=== PATIENT | male | born 1955 | race Caucasian/White ===

== ENCOUNTER 2021-01-07 13:53 | Inpatient (IN) ==
[2021-01-07 15:50] LABS: Basophils % 0.6 %; Eosinophils % 0.6 %; Hematocrit 41.3 % (37.5-50.1); Hemoglobin 14.4 g/dL (12.9-16.9); Immature Granulocytes % 0.5 % (0-4); Lymphocytes # 1.3 K/mcL (0.6-4.6); Mean Corpuscular HGB Conc 34.9 g/dL (31.6-35.5); Mean Corpuscular Volume 106.2 fL (83.0-100.0); Monocytes % 15.7 %; Neutrophils # 3.9 K/mcL (1.6-8.9); Platelet Count 301 K/mcL (140-400); Red Blood Count 3.89 M/mcL (4.19-5.50); Red Cell Distribution Width 11.9 % (11.5-14.5); Segmented Neutrophils % 61.6 %; White Blood Count 6.3 K/mcL (4.3-11.1)
[2021-01-07 16:00] LABS: Prothrombin Time 11.7 Seconds (9.4-12.1)
[2021-01-07 16:02] LABS: Activated Partial Thrombo Time 29.9 Seconds (26.0-36.0)
[2021-01-07 16:20] LABS: Alanine Aminotransferase 29 Units/L (7-52); Albumin 4.2 g/dL (3.5-5.7); Albumin/Globulin Ratio 1.5 (1.1-2.2); Alkaline Phosphatase 55 Units/L (34-104); Aspartate Amino Transferase 27 Units/L (13-39); BUN/Creatinine Ratio 22 (6-26); Bilirubin,Direct 0.1 mg/dL (0.0-0.2); Bilirubin,Indirect 0.5 mg/dL (0.0-1.0); Bilirubin,Total 0.6 mg/dL (0.3-1.0); Blood Urea Nitrogen 13 mg/dL (8-23); Calcium 9.2 mg/dL (8.6-10.3); Carbon Dioxide 26 mEq/L (23-29); Chloride 99 mEq/L (98-107); Globulin 2.8 g/dL (2.4-3.5); Glucose 98 mg/dL (70-105); Osmolality,Calculated 274 (280-300); Potassium 4.2 mEq/L (3.5-5.1); Sodium 132 mEq/L (136-145); Troponin I < 0.03 ng/mL (< 0.04); eGFR For African Americans > 60 (> 60); eGFR For Non-African Americans > 60 (> 60)
[2021-01-07 16:24] LABS: Bilirubin,Urine Negative (Negative); Blood,Urine Negative (Negative); Clarity,Urine Clear (Clear); Color,Urine Light-Yellow (Yellow); Glucose,Urine (UA) Normal (Normal); Ketones,Urine Trace mg/dL (Negative); Leukocyte Esterase,Urine Negative (Negative); Nitrite,Urine Negative (Negative); PH,Urine 6.5 pH Units (5.0-8.0); Protein,Urine Negative (Neg-Trace); Urobilinogen,Urine Normal (Normal)
[2021-01-07 16:33] LABS: Ethanol < 10 mg/dL (Less than 10)
[2021-01-07 16:39] LABS: Amphetamine Screen,Urine Negative ng/mL (Cutoff=1000); Barbiturate Screen,Urine Negative ng/mL (Cutoff=200); Benzodiazepines Screen,Urine Negative ng/mL (Cutoff=200); Cannabinoid Screen,Urine Positive ng/mL (Cutoff = 50); Cocaine Screen,Urine Negative ng/mL (Cutoff= 300); Opiate Screen,Urine Negative ng/mL (Cutoff=300); Phencyclidine Screen,Urine Negative ng/mL (Cutoff=25)
[2021-01-07] MEDS ORDERED: *HR* LORazepam 2 MG/ML VIAL IVP ONE (20:17)
[2021-01-07] MEDS ORDERED: Ondansetron ODT 4 MG TAB.RAPDIS SL PRN (21:26)
[2021-01-07] MEDS ORDERED: Naloxone 0.4 MG/ML INJ IVP PRN (21:26)
[2021-01-07] MEDS ORDERED: *HR* LORazepam 2 MG/ML VIAL IVP PRN (21:26)
[2021-01-07] MEDS ORDERED: *HR* LORazepam 2 MG/ML VIAL ONE (21:42)
[2021-01-07] MEDS: *HR* LORazepam 2 MG/ML VIAL IVP PRN (21:49)
[2021-01-07] MEDS: Thiamine (B-1) 100 MG, Folic Acid 1 MG, MVI, adult with vitamin K 10 ML in 0.9 % Sodi... IVPB SCH (22:09)
[2021-01-07 23:26] LABS: Thyroid Stimulating Hormone 1.621 mcIU/mL (0.340-5.600)
[2021-01-08 02:27] LABS: Basophils % 0.6 %; Eosinophils # 0.1 K/mcL (0.0-0.6); Eosinophils % 1.1 %; Hematocrit 38.6 % (37.5-50.1); Hemoglobin 13.5 g/dL (12.9-16.9); Immature Granulocytes % 0.5 % (0-4); Lymphocytes # 1.5 K/mcL (0.6-4.6); Lymphocytes % 23.3 %; Mean Corpuscular Hemoglobin 37.6 pg (28.0-33.3); Mean Corpuscular Volume 107.5 fL (83.0-100.0); Mean Platelet Volume 9.2 fL (9.4-12.4); Monocytes # 1.1 K/mcL (0.0-1.3); Neutrophils # 3.8 K/mcL (1.6-8.9); Platelet Count 277 K/mcL (140-400); Red Blood Count 3.59 M/mcL (4.19-5.50); Red Cell Distribution Width 11.7 % (11.5-14.5); Segmented Neutrophils % 57.5 %; White Blood Count 6.6 K/mcL (4.3-11.1)
[2021-01-08 02:43] LABS: Alanine Aminotransferase 26 Units/L (7-52); Albumin 3.7 g/dL (3.5-5.7); Albumin/Globulin Ratio 1.5 (1.1-2.2); Alkaline Phosphatase 47 Units/L (34-104); Aspartate Amino Transferase 22 Units/L (13-39); BUN/Creatinine Ratio 27 (6-26); Bilirubin,Total 0.6 mg/dL (0.3-1.0); Blood Urea Nitrogen 13 mg/dL (8-23); Calcium 8.6 mg/dL (8.6-10.3); Carbon Dioxide 23 mEq/L (23-29); Chloride 102 mEq/L (98-107); Chol/HDL Ratio 2.5 (0-4.9); Cholesterol 147 mg/dL (< 200); Globulin 2.5 g/dL (2.4-3.5); Glucose 80 mg/dL (70-105); HDL Cholesterol 58 mg/dL (40-59); LDL Cholesterol,Calculated 76 mg/dL (< 100); Osmolality,Calculated 279 (280-300); Phosphorous 3.6 mg/dL (2.7-4.5); Potassium 3.9 mEq/L (3.5-5.1); Sodium 135 mEq/L (136-145); Total Protein 6.2 g/dL (6.4-8.9); Triglycerides 63 mg/dL (< 150); eGFR For African Americans > 60 (> 60); eGFR For Non-African Americans > 60 (> 60)
[2021-01-08] MEDS ORDERED: Ringers Solution, Lactated 1,000 ML IVC ONE (03:31)
[2021-01-08] MEDS ORDERED: *HR* Heparin 5,000 UNIT/ML VIAL SQ SCH (06:00)
[2021-01-08] MEDS: *HR* LORazepam 2 MG/ML VIAL IVP PRN ×4 (10:50→23:36)
[2021-01-08] MEDS: lisinopriL 10 MG TABLET PO SCH (15:44)
[2021-01-08] MEDS: Thiamine (B-1) 100 MG, Folic Acid 1 MG, MVI, adult with vitamin K 10 ML in 0.9 % Sodi... IVPB SCH (17:08)
[2021-01-09] MEDS: *HR* LORazepam 2 MG/ML VIAL IVP PRN ×3 (01:42→19:55)
[2021-01-09 09:01] LABS: Basophils # 0.1 K/mcL (0.0-0.2); Basophils % 0.7 %; Eosinophils # 0.1 K/mcL (0.0-0.6); Eosinophils % 1.2 %; Hematocrit 40.1 % (37.5-50.1); Hemoglobin 13.9 g/dL (12.9-16.9); Immature Granulocytes % 0.6 % (0-4); Lymphocytes # 1.7 K/mcL (0.6-4.6); Lymphocytes % 25.2 %; Mean Corpuscular HGB Conc 34.7 g/dL (31.6-35.5); Mean Corpuscular Hemoglobin 36.6 pg (28.0-33.3); Mean Corpuscular Volume 105.5 fL (83.0-100.0); Monocytes # 1.2 K/mcL (0.0-1.3); Monocytes % 17.1 %; Neutrophils # 3.7 K/mcL (1.6-8.9); Platelet Count 281 K/mcL (140-400); Red Cell Distribution Width 11.7 % (11.5-14.5); Segmented Neutrophils % 55.2 %; White Blood Count 6.7 K/mcL (4.3-11.1)
[2021-01-09 09:20] LABS: BUN/Creatinine Ratio 13 (6-26); Blood Urea Nitrogen 8 mg/dL (8-23); Calcium 8.6 mg/dL (8.6-10.3); Carbon Dioxide 26 mEq/L (23-29); Chloride 100 mEq/L (98-107); Glucose 83 mg/dL (70-105); Magnesium 1.8 mg/dL (1.6-2.6); Osmolality,Calculated 277 (280-300); Phosphorous 3.5 mg/dL (2.7-4.5); Potassium 4.2 mEq/L (3.5-5.1); Sodium 135 mEq/L (136-145); eGFR For African Americans > 60 (> 60); eGFR For Non-African Americans > 60 (> 60)
[2021-01-09] MEDS: Nicotine 14 MG PATCH.TD24 TD SCH ×2 (10:02→10:03)
[2021-01-09] MEDS: lisinopriL 10 MG TABLET PO SCH (10:06)
[2021-01-09] MEDS: Thiamine (B-1) 100 MG, Folic Acid 1 MG, MVI, adult with vitamin K 10 ML in 0.9 % Sodi... IVPB SCH (18:52)
[2021-01-09] MEDS ORDERED: Haloperidol Lactate 5 MG/ML VIAL ONE (21:23)
[2021-01-09] MEDS: Haloperidol Lactate 5 MG/ML VIAL IVP PRN (21:28)
[2021-01-10 02:44] LABS: Basophils % 0.6 %; Eosinophils # 0.1 K/mcL (0.0-0.6); Eosinophils % 0.9 %; Hematocrit 39.6 % (37.5-50.1); Hemoglobin 13.8 g/dL (12.9-16.9); Immature Granulocytes % 0.4 % (0-4); Lymphocytes # 1.9 K/mcL (0.6-4.6); Lymphocytes % 28.6 %; Mean Corpuscular HGB Conc 34.8 g/dL (31.6-35.5); Mean Corpuscular Hemoglobin 36.7 pg (28.0-33.3); Mean Corpuscular Volume 105.3 fL (83.0-100.0); Mean Platelet Volume 9.3 fL (9.4-12.4); Monocytes # 0.9 K/mcL (0.0-1.3); Monocytes % 13.8 %; Neutrophils # 3.8 K/mcL (1.6-8.9); Platelet Count 279 K/mcL (140-400); Red Blood Count 3.76 M/mcL (4.19-5.50); Red Cell Distribution Width 11.6 % (11.5-14.5); Segmented Neutrophils % 55.7 %; White Blood Count 6.7 K/mcL (4.3-11.1)
[2021-01-10 03:06] LABS: BUN/Creatinine Ratio 20 (6-26); Blood Urea Nitrogen 10 mg/dL (8-23); Calcium 8.6 mg/dL (8.6-10.3); Carbon Dioxide 23 mEq/L (23-29); Chloride 102 mEq/L (98-107); Glucose 90 mg/dL (70-105); Osmolality,Calculated 273 (280-300); Potassium 3.8 mEq/L (3.5-5.1); Sodium 132 mEq/L (136-145); eGFR For African Americans > 60 (> 60); eGFR For Non-African Americans > 60 (> 60)
[2021-01-10] MEDS: Nicotine 14 MG PATCH.TD24 TD SCH (10:00)
[2021-01-10] MEDS: lisinopriL 10 MG TABLET PO SCH (10:01)
[2021-01-10] MEDS: Haloperidol Lactate 5 MG/ML VIAL IVP PRN (10:01)
[2021-01-10] MEDS: Thiamine (B-1) 100 MG TABLET PO SCH (12:14)
[2021-01-10] MEDS: Multivit/Ca/Min/Fe/FA 1 TAB TABLET PO SCH (12:14)
[2021-01-10] MEDS: Folic Acid 1 MG TABLET PO SCH (12:14)
[2021-01-10] MEDS: *HR* LORazepam 2 MG/ML VIAL IVP PRN ×2 (13:35→21:48)
[2021-01-10] MEDS ORDERED: Nicotine 2 MG GUM BC PRN (21:56)
[2021-01-11 04:47] LABS: Basophils % 0.4 %; Hematocrit 40.8 % (37.5-50.1); Immature Granulocytes % 0.4 % (0-4); Lymphocytes # 0.6 K/mcL (0.6-4.6); Lymphocytes % 7.1 %; Mean Corpuscular HGB Conc 34.3 g/dL (31.6-35.5); Mean Corpuscular Hemoglobin 35.9 pg (28.0-33.3); Mean Corpuscular Volume 104.6 fL (83.0-100.0); Mean Platelet Volume 9.1 fL (9.4-12.4); Monocytes # 0.7 K/mcL (0.0-1.3); Monocytes % 7.8 %; Neutrophils # 7.1 K/mcL (1.6-8.9); Platelet Count 250 K/mcL (140-400); Red Cell Distribution Width 11.6 % (11.5-14.5); Segmented Neutrophils % 84.3 %; White Blood Count 8.4 K/mcL (4.3-11.1)
[2021-01-11 05:04] LABS: BUN/Creatinine Ratio 20 (6-26); Blood Urea Nitrogen 11 mg/dL (8-23); Carbon Dioxide 25 mEq/L (23-29); Chloride 101 mEq/L (98-107); Glucose 128 mg/dL (70-105); Osmolality,Calculated 277 (280-300); Sodium 133 mEq/L (136-145); eGFR For African Americans > 60 (> 60); eGFR For Non-African Americans > 60 (> 60)
[2021-01-11] MEDS: Nicotine 14 MG PATCH.TD24 TD SCH (08:02)
[2021-01-11] MEDS: lisinopriL 10 MG TABLET PO SCH (08:03)
[2021-01-11] MEDS: Folic Acid 1 MG TABLET PO SCH (08:03)
[2021-01-11] MEDS: Thiamine (B-1) 100 MG TABLET PO SCH (08:03)
[2021-01-11] MEDS: Multivit/Ca/Min/Fe/FA 1 TAB TABLET PO SCH (08:03)
[2021-01-11] MEDS: Haloperidol Lactate 5 MG/ML VIAL IVP PRN (15:09)
[2021-01-11] MEDS ORDERED: *HR* LORazepam 2 MG/ML VIAL IVP STA (15:18)
[2021-01-11] MEDS ORDERED: Haloperidol Lactate 5 MG/ML VIAL IVP ONE (15:38)
[2021-01-12 07:12] LABS: Basophils % 0.6 %; Eosinophils # 0.1 K/mcL (0.0-0.6); Eosinophils % 0.7 %; Hematocrit 40.4 % (37.5-50.1); Hemoglobin 14.2 g/dL (12.9-16.9); Immature Granulocytes % 0.4 % (0-4); Lymphocytes # 1.3 K/mcL (0.6-4.6); Mean Corpuscular HGB Conc 35.1 g/dL (31.6-35.5); Mean Corpuscular Hemoglobin 37.4 pg (28.0-33.3); Mean Corpuscular Volume 106.3 fL (83.0-100.0); Mean Platelet Volume 9.4 fL (9.4-12.4); Monocytes # 1.4 K/mcL (0.0-1.3); Monocytes % 19.5 %; Neutrophils # 4.4 K/mcL (1.6-8.9); Platelet Count 241 K/mcL (140-400); Segmented Neutrophils % 60.8 %; White Blood Count 7.2 K/mcL (4.3-11.1)
[2021-01-12 07:33] LABS: BUN/Creatinine Ratio 26 (6-26); Blood Urea Nitrogen 15 mg/dL (8-23); Calcium 8.9 mg/dL (8.6-10.3); Carbon Dioxide 24 mEq/L (23-29); Chloride 108 mEq/L (98-107); Glucose 108 mg/dL (70-105); Osmolality,Calculated 273 (280-300); Potassium 4.1 mEq/L (3.5-5.1); Sodium 131 mEq/L (136-145); eGFR For African Americans > 60 (> 60); eGFR For Non-African Americans > 60 (> 60)
[2021-01-12] MEDS: Thiamine (B-1) 100 MG TABLET PO SCH (07:42)
[2021-01-12] MEDS: Multivit/Ca/Min/Fe/FA 1 TAB TABLET PO SCH (07:42)
[2021-01-12] MEDS: Haloperidol Lactate 5 MG/ML VIAL IVP PRN ×2 (07:43→15:08)
[2021-01-12] MEDS: Nicotine 14 MG PATCH.TD24 TD SCH (07:43)
[2021-01-12] MEDS: lisinopriL 10 MG TABLET PO SCH (07:43)
[2021-01-12] MEDS: Folic Acid 1 MG TABLET PO SCH (07:48)
[2021-01-12] MEDS: *HR* LORazepam 2 MG/ML VIAL IVP PRN (20:20)
[2021-01-12] MEDS ORDERED: Haloperidol Lactate 5 MG/ML VIAL IVP ONE (22:04)
[2021-01-13 07:24] LABS: Hematocrit 40.4 % (37.5-50.1); Hemoglobin 13.7 g/dL (12.9-16.9); Lymphocytes # 1.4 K/mcL (0.6-4.6); Mean Corpuscular HGB Conc 33.9 g/dL (31.6-35.5); Mean Corpuscular Hemoglobin 36.2 pg (28.0-33.3); Mean Corpuscular Volume 106.9 fL (83.0-100.0); Mean Platelet Volume 9.5 fL (9.4-12.4); Platelet Count 238 K/mcL (140-400); Red Blood Count 3.78 M/mcL (4.19-5.50); Red Cell Distribution Width 11.9 % (11.5-14.5); White Blood Count 6.3 K/mcL (4.3-11.1)
[2021-01-13 07:43] LABS: BUN/Creatinine Ratio 26 (6-26); Blood Urea Nitrogen 15 mg/dL (8-23); Carbon Dioxide 26 mEq/L (23-29); Chloride 105 mEq/L (98-107); Glucose 93 mg/dL (70-105); Osmolality,Calculated 281 (280-300); Potassium 4.4 mEq/L (3.5-5.1); Sodium 135 mEq/L (136-145); eGFR For African Americans > 60 (> 60); eGFR For Non-African Americans > 60 (> 60)
[2021-01-13 08:19] LABS: Monocytes # 1.1 K/mcL (0.0-1.3); Neutrophils # 3.8 K/mcL (1.6-8.9); Platelet Estimate Normal (Normal); Reactive Lymphocytes Present (Not Present)
[2021-01-13] MEDS: Nicotine 14 MG PATCH.TD24 TD SCH (08:28)
[2021-01-13] MEDS: lisinopriL 10 MG TABLET PO SCH ×2 (08:28→08:54)
[2021-01-13] MEDS: Thiamine (B-1) 100 MG TABLET PO SCH ×2 (08:28→08:54)
[2021-01-13] MEDS: Folic Acid 1 MG TABLET PO SCH ×2 (08:28→08:54)
[2021-01-13] MEDS: Multivit/Ca/Min/Fe/FA 1 TAB TABLET PO SCH ×2 (08:28→08:54)
[2021-01-13] MEDS: QUEtiapine Fumarate 25 MG TABLET PO SCH ×2 (10:44→19:49)
[2021-01-13] MEDS: Haloperidol Lactate 5 MG/ML VIAL IVP PRN ×2 (15:24→19:49)
[2021-01-14] MEDS: Haloperidol Lactate 5 MG/ML VIAL IVP PRN ×3 (00:07→20:48)
[2021-01-14] MEDS: Nicotine 14 MG PATCH.TD24 TD SCH (09:58)
[2021-01-14] MEDS: Folic Acid 1 MG TABLET PO SCH (10:00)
[2021-01-14] MEDS: Multivit/Ca/Min/Fe/FA 1 TAB TABLET PO SCH (10:00)
[2021-01-14] MEDS: Thiamine (B-1) 100 MG TABLET PO SCH (10:00)
[2021-01-14] MEDS: lisinopriL 10 MG TABLET PO SCH (10:00)
[2021-01-14] MEDS: QUEtiapine Fumarate 25 MG TABLET PO SCH ×2 (10:00→20:48)
[2021-01-14 11:54] LABS: Hemoglobin 13.7 g/dL (12.9-16.9); Mean Corpuscular HGB Conc 33.4 g/dL (31.6-35.5); Mean Corpuscular Hemoglobin 35.9 pg (28.0-33.3); Mean Corpuscular Volume 107.3 fL (83.0-100.0); Mean Platelet Volume 9.5 fL (9.4-12.4); Platelet Count 284 K/mcL (140-400); Red Blood Count 3.82 M/mcL (4.19-5.50); Red Cell Distribution Width 11.9 % (11.5-14.5); White Blood Count 9.1 K/mcL (4.3-11.1)
[2021-01-14 14:00] LABS: BUN/Creatinine Ratio 18 (6-26); Blood Urea Nitrogen 11 mg/dL (8-23); Calcium 9.3 mg/dL (8.6-10.3); Carbon Dioxide 28 mEq/L (23-29); Chloride 100 mEq/L (98-107); Glucose 97 mg/dL (70-105); Osmolality,Calculated 279 (280-300); Potassium 4.1 mEq/L (3.5-5.1); Sodium 135 mEq/L (136-145); eGFR For African Americans > 60 (> 60); eGFR For Non-African Americans > 60 (> 60)
[2021-01-14] MEDS: *HR* LORazepam 2 MG/ML VIAL IVP PRN (14:51)
[2021-01-15] MEDS: Nicotine 14 MG PATCH.TD24 TD SCH (10:30)
[2021-01-15] MEDS: Haloperidol Lactate 5 MG/ML VIAL IVP PRN ×2 (14:04→20:18)
[2021-01-15] MEDS: Folic Acid 1 MG TABLET PO SCH (14:16)
[2021-01-15] MEDS: QUEtiapine Fumarate 25 MG TABLET PO SCH ×2 (14:16→20:17)
[2021-01-15] MEDS: Multivit/Ca/Min/Fe/FA 1 TAB TABLET PO SCH (14:16)
[2021-01-15] MEDS: lisinopriL 10 MG TABLET PO SCH (14:17)
[2021-01-15] MEDS: Thiamine (B-1) 100 MG TABLET PO SCH (14:17)
[2021-01-16] MEDS: Nicotine 14 MG PATCH.TD24 TD SCH (09:53)
[2021-01-16] MEDS: lisinopriL 10 MG TABLET PO SCH (09:54)
[2021-01-16] MEDS: Multivit/Ca/Min/Fe/FA 1 TAB TABLET PO SCH (09:54)
[2021-01-16] MEDS: QUEtiapine Fumarate 25 MG TABLET PO SCH ×2 (09:54→20:00)
[2021-01-16] MEDS: Folic Acid 1 MG TABLET PO SCH (09:54)
[2021-01-16] MEDS: Thiamine (B-1) 100 MG TABLET PO SCH (09:54)
[2021-01-16] MEDS ORDERED: *HR* LORazepam 2 MG/ML VIAL IVP ONE (13:53)
[2021-01-16] MEDS: *HR* Heparin 5,000 UNIT/ML VIAL SQ SCH ×2 (18:11→20:00)
[2021-01-16] MEDS: Nicotine 21 MG PATCH.TD24 TD SCH (19:59)
[2021-01-17] MEDS: *HR* Heparin 5,000 UNIT/ML VIAL SQ SCH ×2 (05:35→19:01)
[2021-01-17] MEDS: Folic Acid 1 MG TABLET PO SCH (09:43)
[2021-01-17] MEDS: lisinopriL 10 MG TABLET PO SCH (09:43)
[2021-01-17] MEDS: Thiamine (B-1) 100 MG TABLET PO SCH (09:43)
[2021-01-17] MEDS: Multivit/Ca/Min/Fe/FA 1 TAB TABLET PO SCH (09:43)
[2021-01-17] MEDS: QUEtiapine Fumarate 25 MG TABLET PO SCH ×2 (09:44→19:47)
[2021-01-17] MEDS ORDERED: QUEtiapine Fumarate 25 MG TABLET PO ONE (14:57)
[2021-01-17] MEDS: Nicotine 21 MG PATCH.TD24 TD SCH (19:47)
[2021-01-17] MEDS ORDERED: Acetaminophen 325 MG TABLET PO PRN (22:56)
[2021-01-18] MEDS ORDERED: QUEtiapine Fumarate 25 MG TABLET PO ONE (01:58)
[2021-01-18] MEDS: *HR* Heparin 5,000 UNIT/ML VIAL SQ SCH (05:41)
[2021-01-18] MEDS: QUEtiapine Fumarate 25 MG TABLET PO SCH (09:50)
[2021-01-18] MEDS: Thiamine (B-1) 100 MG TABLET PO SCH (09:50)
[2021-01-18] MEDS: Folic Acid 1 MG TABLET PO SCH (09:51)
[2021-01-18] MEDS: Multivit/Ca/Min/Fe/FA 1 TAB TABLET PO SCH (09:51)
[2021-01-18] MEDS: lisinopriL 10 MG TABLET PO SCH (09:51)
[2021-01-18 11:07] VITALS: BP 126/68
[2021-01-18 12:45] LABS: Adenovirus Not Detected (Not Detect); Bordetella Pertussis Not Detected (Not Detect); Chlamydophila pneumoniae Not Detected (Not Detect); Coronavirus 229E Not Detected (Not Detect); Coronavirus HKU1 Not Detected (Not Detect); Coronavirus NL63 Not Detected (Not Detect); Coronavirus OC43 Not Detected (Not Detect); Human Metapneumovirus Not Detected (Not Detect); Human Rhinovirus/Enterovirus Not Detected (Not Detect); Influenza A Subtype 2009 H1 Not Detected (Not Detect); Influenza B Not Detected (Not Detect); Mycoplasma pneumoniae Not Detected (Not Detect); Parainfluenza Virus 1 Not Detected (Not Detect); Parainfluenza Virus 2 Not Detected (Not Detect); Parainfluenza Virus 3 Not Detected (Not Detect); Parainfluenza Virus 4 Not Detected (Not Detect); Respiratory Syncytial Virus Not Detected (Not Detect); SARS-CoV-2 Not Detected (Not Detect)
== END 2021-01-18 14:11 | DRG 896 ==
LOC: CDU 13:53 → EMEROOARM 13:53 → SUATTDRO 20:29 → CDU 21:12 → 2ANU 01-08 00:34 → SUATTDRO 01-09 16:35 → 2ANU 01-10 10:10
PROVIDERS: ADMIT Family Medicine; ATTEND Internal Medicine

== ENCOUNTER 2021-09-24 15:59 | Inpatient (IN) ==
[2021-09-24] MEDS ORDERED: 0.9 % Sodium Chloride 1,000 ML IVC ONE ×2 (16:02→21:05)
[2021-09-24] MEDS ORDERED: *HR* LORazepam 2 MG/ML VIAL IVP ONE (16:58)
[2021-09-24 17:43] LABS: Lymphocytes % 16.1 %; Red Blood Count 1.89 M/mcL (4.19-5.50)
[2021-09-24 17:45] LABS: Alanine Aminotransferase 11 Units/L (7-52); Albumin 3.4 g/dL (3.5-5.7); Albumin/Globulin Ratio 1.2 (1.1-2.2); Alkaline Phosphatase 50 Units/L (34-104); Aspartate Amino Transferase 15 Units/L (13-39); BUN/Creatinine Ratio 38 (6-26); Basophils % 0.2 %; Bilirubin,Total 0.4 mg/dL (0.3-1.0); Blood Urea Nitrogen 34 mg/dL (8-23); Calcium 8.7 mg/dL (8.6-10.3); Carbon Dioxide 13 mEq/L (23-29); Chloride 101 mEq/L (98-107); Creatine Kinase 65 Units/L (30-223); Globulin 2.8 g/dL (2.4-3.5); Glucose 175 mg/dL (70-105); Hematocrit 18.8 % (37.5-50.1); Immature Granulocytes % 1.7 % (0-4); Lymphocytes # 1.5 K/mcL (0.6-4.6); Magnesium 2.3 mg/dL (1.6-2.6); Mean Corpuscular HGB Conc 30.9 g/dL (31.6-35.5); Mean Corpuscular Hemoglobin 30.7 pg (28.0-33.3); Mean Corpuscular Volume 99.5 fL (83.0-100.0); Mean Platelet Volume 9.4 fL (9.4-12.4); Monocytes # 0.5 K/mcL (0.0-1.3); Monocytes % 5.7 %; Neutrophils # 7.1 K/mcL (1.6-8.9); Osmolality,Calculated 298 (280-300); Platelet Count 474 K/mcL (140-400); Red Cell Distribution Width 12.7 % (11.5-14.5); Segmented Neutrophils % 76.3 %; Sodium 138 mEq/L (136-145); Total Protein 6.2 g/dL (6.4-8.9); Troponin I < 0.03 ng/mL (< 0.04); White Blood Count 9.3 K/mcL (4.3-11.1); eGFR For African Americans > 60 (> 60); eGFR For Non-African Americans > 60 (> 60)
[2021-09-24 17:55] LABS: Hemoglobin 5.8 g/dL (12.9-16.9)
[2021-09-24] MEDS ORDERED: Pantoprazole 80 MG in 0.9 % Sodium Chloride 50 ML IVPB ONE (18:03)
[2021-09-24 18:59] LABS: VBG HCO3 11 mEq/L (21-27); VBG PCO2 30 mmHg (41-51); VBG PH 7.17 pH Units (7.32-7.42); VBG PO2 188 mmHg (25-50)
[2021-09-24] MEDS: Pantoprazole 40 MG in 0.9 % Sodium Chloride Mini Bag 100 ML IVC SCH (19:24)
[2021-09-24] MEDS ORDERED: Naloxone 0.4 MG/ML INJ IVP PRN (19:46)
[2021-09-24] MEDS ORDERED: Ondansetron ODT 4 MG TAB.RAPDIS SL PRN (19:46)
[2021-09-24] MEDS ORDERED: 0.9 % Sodium Chloride 250 ML ONE (20:00)
[2021-09-24] MEDS ORDERED: 0.9 % Sodium Chloride 1,000 ML IVC SCH (20:00)
[2021-09-24] MEDS: Octreotide 400 MCG in 0.9 % Sodium Chloride 100 ML IVC SCH (21:16)
[2021-09-24] MEDS ORDERED: CefTRIAXone 1,000 MG VIAL ONE (21:17)
[2021-09-24] MEDS: cefTRIAXone 1,000 MG in Water for inj. (sterile) 10 ML IVP SCH (21:19)
[2021-09-24] MEDS ORDERED: Lactulose 200 GM, Sodium Chloride IRRigation 700 ML RC ONE (21:30)
[2021-09-24 21:31] LABS: INR 1.8; Prothrombin Time 19.5 Seconds (9.4-12.1)
[2021-09-24 21:33] LABS: Activated Partial Thrombo Time 34.9 Seconds (26.0-36.0)
[2021-09-24 21:42] LABS: Phosphorous 6.5 mg/dL (2.7-4.5)
[2021-09-24 21:50] LABS: Bilirubin,Urine Negative (Negative); Blood,Urine Trace (Negative); Clarity,Urine Clear (Clear); Color,Urine Light-Yellow (Yellow); Glucose,Urine (UA) Normal (Normal); Hyaline Casts,Urine Moderate per lpf (None Seen); Ketones,Urine 10 mg/dL (Negative); Leukocyte Esterase,Urine Negative (Negative); Mucus,Urine Few per lpf (None-Few); Nitrite,Urine Negative (Negative); PH,Urine 5.5 pH Units (5.0-8.0); Protein,Urine Trace mg/dL (Neg-Trace); RBC,Urine 0-3 per hpf (0-3); Specific Gravity,Urine 1.022 (1.010-1.025); Squamous Epithelial Cell,Urine Few per hpf (None-Few); Urobilinogen,Urine Normal (Normal)
[2021-09-24] MEDS: Morphine Sulfate 2 MG/ML SYRINGE IVP PRN (22:21)
[2021-09-24] MEDS ORDERED: Dextrose 4 GM Chewable Tablets PO PRN ×2 (23:23)
[2021-09-25] MEDS: Pantoprazole 40 MG in 0.9 % Sodium Chloride Mini Bag 100 ML IVC SCH ×5 (00:03→22:00)
[2021-09-25] MEDS: Insulin LISPRO 300 UNITS/3 ML VIAL SUBQ SCH ×4 (00:05→23:07)
[2021-09-25] MEDS ORDERED: levETIRAcetam 1,000 MG in 0.9 % Sodium Chloride 100 ML IVPB ONE (00:07)
[2021-09-25] MEDS ORDERED: 0.9 % Sodium Chloride 1,000 ML IVC ONE (00:18)
[2021-09-25] MEDS ORDERED: 0.9 % Sodium Chloride 1,000 ML ONE (00:27)
[2021-09-25 01:21] LABS: Hematocrit 15.4 % (37.5-50.1); Mean Corpuscular HGB Conc 31.2 g/dL (31.6-35.5); Mean Corpuscular Hemoglobin 29.8 pg (28.0-33.3); Mean Corpuscular Volume 95.7 fL (83.0-100.0); Mean Platelet Volume 9.4 fL (9.4-12.4); Platelet Count 241 K/mcL (140-400); Red Blood Count 1.61 M/mcL (4.19-5.50); Red Cell Distribution Width 15.9 % (11.5-14.5); White Blood Count 17.4 K/mcL (4.3-11.1)
[2021-09-25 01:24] LABS: VBG HCO3 9 mEq/L (21-27); VBG PCO2 27 mmHg (41-51); VBG PO2 109 mmHg (25-50)
[2021-09-25 01:25] LABS: Hemoglobin 4.8 g/dL (12.9-16.9)
[2021-09-25] MEDS ORDERED: 0.9 % Sodium Chloride 250 ML IVC SCH (01:30)
[2021-09-25] MEDS ORDERED: Isovue-370 500 ML BOTTLE IVP ONE ×2 (01:30→23:52)
[2021-09-25] MEDS ORDERED: 0.9 % Sodium Chloride 250 ML ONE ×2 (01:35→03:39)
[2021-09-25 01:58] LABS: Alanine Aminotransferase 1218 Units/L (7-52); Albumin 2.2 g/dL (3.5-5.7); Albumin/Globulin Ratio 1.5 (1.1-2.2); Alkaline Phosphatase 35 Units/L (34-104); Aspartate Amino Transferase 1091 Units/L (13-39); BUN/Creatinine Ratio 37 (6-26); Bilirubin,Total 0.5 mg/dL (0.3-1.0); Blood Urea Nitrogen 34 mg/dL (8-23); Calcium 6.4 mg/dL (8.6-10.3); Carbon Dioxide 9 mEq/L (23-29); Chloride 114 mEq/L (98-107); Globulin 1.5 g/dL (2.4-3.5); Glucose 113 mg/dL (70-105); Osmolality,Calculated 300 (280-300); Potassium 5.1 mEq/L (3.5-5.1); Sodium 141 mEq/L (136-145); Total Protein 3.7 g/dL (6.4-8.9); eGFR For African Americans > 60 (> 60); eGFR For Non-African Americans > 60 (> 60)
[2021-09-25] MEDS: Morphine Sulfate 2 MG/ML SYRINGE IVP PRN ×2 (04:08→21:00)
[2021-09-25 06:36] LABS: Basophils % 0.1 %; Hematocrit 28.3 % (37.5-50.1); Hemoglobin 9.1 g/dL (12.9-16.9); Immature Granulocytes % 1.1 % (0-4); Lymphocytes # 0.9 K/mcL (0.6-4.6); Lymphocytes % 5.3 %; Mean Corpuscular HGB Conc 32.2 g/dL (31.6-35.5); Mean Corpuscular Hemoglobin 28.9 pg (28.0-33.3); Mean Corpuscular Volume 89.8 fL (83.0-100.0); Mean Platelet Volume 9.5 fL (9.4-12.4); Monocytes # 0.7 K/mcL (0.0-1.3); Monocytes % 4.1 %; Neutrophils # 14.3 K/mcL (1.6-8.9); Nucleated Red Blood Cells 0.2 /100 WBC (0); Platelet Count 178 K/mcL (140-400); Red Blood Count 3.15 M/mcL (4.19-5.50); Red Cell Distribution Width 14.6 % (11.5-14.5); Segmented Neutrophils % 89.4 %
[2021-09-25] MEDS ORDERED: Ringers Solution, Lactated 500 ML IVC SCH (07:45)
[2021-09-25] MEDS: cefTRIAXone 1,000 MG in Water for inj. (sterile) 10 ML IVP SCH (08:29)
[2021-09-25 09:23] LABS: INR 2.3; Prothrombin Time 25.2 Seconds (9.4-12.1)
[2021-09-25 09:26] LABS: Activated Partial Thrombo Time 30.2 Seconds (26.0-36.0)
[2021-09-25] MEDS: Octreotide 400 MCG in 0.9 % Sodium Chloride 100 ML IVC SCH ×2 (09:33→19:56)
[2021-09-25] MEDS ORDERED: WATER IVC ONE ×2 (10:00→11:00)
[2021-09-25] MEDS ORDERED: ACETYLCYSTEINE IVC ONE ×2 (10:00→11:00)
[2021-09-25] MEDS ORDERED: D5 IVC ONE ×2 (10:00→11:00)
[2021-09-25] MEDS ORDERED: Metoclopramide 10 MG/2 ML VIAL IVP ONE (11:35)
[2021-09-25] MEDS: Lactulose Oral Soln 20 GM/30 ML UDC PO SCH ×2 (12:04→23:07)
[2021-09-25] MEDS ORDERED: *HR* Propofol 200 MG/20 ML VIAL IVP ONE (14:46)
[2021-09-25] MEDS ORDERED: Lidocaine -MPF 2% 5 ML VIAL ONE (14:46)
[2021-09-25] MEDS ORDERED: EPHEDrine 50 MG/ML VIAL ONE (15:27)
[2021-09-25] MEDS ORDERED: Albuterol 2.5 MG/3 ML NEBULIZER IH ONE (15:35)
[2021-09-25] MEDS ORDERED: *HR* EPINEPHrine 1 MG/10 ML SYRINGE INTRATRACH ONE (16:16)
[2021-09-25 17:27] LABS: Hematocrit 22.1 % (37.5-50.1); Lymphocytes # 1.6 K/mcL (0.6-4.6); Mean Corpuscular Hemoglobin 29.7 pg (28.0-33.3); Mean Corpuscular Volume 89.8 fL (83.0-100.0); Mean Platelet Volume 10.4 fL (9.4-12.4); Nucleated Red Blood Cells 0.2 /100 WBC (0); Platelet Count 161 K/mcL (140-400); Red Blood Count 2.46 M/mcL (4.19-5.50); Red Cell Distribution Width 15.3 % (11.5-14.5)
[2021-09-25 17:30] LABS: Hemoglobin 7.3 g/dL (12.9-16.9)
[2021-09-25 17:57] LABS: Neutrophils # 18.4 K/mcL (1.6-8.9)
[2021-09-25] MEDS: Dexmedetomidine HCl 400 MCG/100 ML MLS IVC SCH (17:59)
[2021-09-25 19:12] LABS: mecA/C Methicillin-Resist Gene Not Detected (Not Detect)
[2021-09-25 19:13] LABS: Enterococcus faecalis by PCR Not Detected (Not Detect); Enterococcus faecium by PCR Not Detected (Not Detect); Staph epidermidis by PCR DETECTED (Not Detect); Staphylococcus aureus by PCR Not Detected (Not Detect); Staphylococcus by PCR Not Detected (Not Detect)
[2021-09-25 19:14] LABS: A.calcoaceticus-baumannii cplx Not Detected (Not Detect); Bacteroides fragilis by PCR Not Detected (Not Detect); Candida albicans by PCR Not Detected (Not Detect); Candida auris by PCR Not Detected (Not Detect); Candida glabrata by PCR Not Detected (Not Detect); Candida krusei by PCR Not Detected (Not Detect); Candida parapsilosis by PCR Not Detected (Not Detect); Candida tropicalis by PCR Not Detected (Not Detect); Crypto. neoformans/gattii PCR Not Detected (Not Detect); Enterobacter cloacae Cmplx PCR Not Detected (Not Detect); Enterobacterales by PCR Not Detected (Not Detect); Escherichia coli by PCR Not Detected (Not Detect); Klebs. pneumoniae group by PCR Not Detected (Not Detect); Klebsiella aerogenes by PCR Not Detected (Not Detect); Klebsiella oxytoca by PCR Not Detected (Not Detect); Proteus by PCR Not Detected (Not Detect); Pseudomonas aeruginosa by PCR Not Detected (Not Detect); Salmonella species by PCR Not Detected (Not Detect); Serratia marcescens by PCR Not Detected (Not Detect); Staph lugdunensis by PCR Not Detected (Not Detect); Stenotrophomonas maltophilia Not Detected (Not Detect); Streptococcus agalactiae(B)PCR Not Detected (Not Detect); Streptococcus by PCR Not Detected (Not Detect); Streptococcus pneumoniae PCR Not Detected (Not Detect); Streptococcus pyogenes (A) PCR Not Detected (Not Detect)
[2021-09-25] MEDS: WATER IVC SCH (19:58)
[2021-09-25] MEDS: D5 IVC SCH (19:58)
[2021-09-25] MEDS: ACETYLCYSTEINE IVC SCH (19:58)
[2021-09-25 20:59] LABS: BUN/Creatinine Ratio 43 (6-26); Blood Urea Nitrogen 35 mg/dL (8-23); Calcium 7.1 mg/dL (8.6-10.3); Carbon Dioxide 20 mEq/L (23-29); Chloride 117 mEq/L (98-107); Glucose 101 mg/dL (70-105); Osmolality,Calculated 310 (280-300); Potassium 4.7 mEq/L (3.5-5.1); Sodium 146 mEq/L (136-145); eGFR For African Americans > 60 (> 60); eGFR For Non-African Americans > 60 (> 60)
[2021-09-25 22:00] LABS: ABG Base Excess -9 mEq/L (-2 to 3); ABG HCO3 17 mEq/L (21-27); ABG Oxygen Saturation 100 % (95-98); ABG PCO2 33 mmHg (35-45); ABG PH 7.32 pH Units (7.32-7.45); ABG PO2 209 mmHg (85-104); ABG TCO2 18 mEq/L (20-26)
[2021-09-25] MEDS: *HR* Dextrose 50 % in Water (Syg) 50 ML SYRINGE IVP PRN (23:06)
[2021-09-25 23:12] LABS: Mean Corpuscular HGB Conc 32.6 g/dL (31.6-35.5); Mean Corpuscular Hemoglobin 29.8 pg (28.0-33.3); Mean Corpuscular Volume 91.4 fL (83.0-100.0); Platelet Count 123 K/mcL (140-400); Red Blood Count 1.51 M/mcL (4.19-5.50)
[2021-09-25 23:13] LABS: Mean Platelet Volume 10.5 fL (9.4-12.4); Nucleated Red Blood Cells 0.3 /100 WBC (0); Red Cell Distribution Width 15.9 % (11.5-14.5); White Blood Count 13.3 K/mcL (4.3-11.1)
[2021-09-25 23:19] LABS: Hematocrit 13.8 % (37.5-50.1); Hemoglobin 4.5 g/dL (12.9-16.9)
[2021-09-25 23:34] LABS: Lymphocytes # 3.2 K/mcL (0.6-4.6); Neutrophils # 10.1 K/mcL (1.6-8.9)
[2021-09-26] MEDS ORDERED: Lactulose 200 GM, Sodium Chloride IRRigation 700 ML RC ONE (02:23)
[2021-09-26] MEDS: *HR* Dextrose 50 % in Water (Syg) 50 ML SYRINGE IVP PRN (02:51)
[2021-09-26] MEDS: D5% in Water 1,000 ML IVC PRN ×2 (02:52→14:19)
[2021-09-26] MEDS: Pantoprazole 40 MG in 0.9 % Sodium Chloride Mini Bag 100 ML IVC SCH ×5 (03:30→20:28)
[2021-09-26] MEDS: Morphine Sulfate 2 MG/ML SYRINGE IVP PRN (03:32)
[2021-09-26] MEDS: Octreotide 400 MCG in 0.9 % Sodium Chloride 100 ML IVC SCH ×5 (03:47→21:17)
[2021-09-26] MEDS: Dexmedetomidine HCl 400 MCG/100 ML MLS IVC SCH ×2 (03:50→20:30)
[2021-09-26] MEDS: Insulin LISPRO 300 UNITS/3 ML VIAL SUBQ SCH ×5 (04:28→23:06)
[2021-09-26 05:07] LABS: Hematocrit 26.8 % (37.5-50.1); Hemoglobin 8.8 g/dL (12.9-16.9); Immature Platelets 8.2 % (1.1-6.1); Mean Corpuscular HGB Conc 32.8 g/dL (31.6-35.5); Mean Corpuscular Hemoglobin 29.3 pg (28.0-33.3); Mean Corpuscular Volume 89.3 fL (83.0-100.0); Mean Platelet Volume 10.8 fL (9.4-12.4); Red Cell Distribution Width 14.1 % (11.5-14.5); White Blood Count 12.4 K/mcL (4.3-11.1)
[2021-09-26 05:12] LABS: VBG Ionized Calcium 1.15 mmol/L (1.15-1.35)
[2021-09-26 05:13] LABS: INR 2.2; Prothrombin Time 23.9 Seconds (9.4-12.1)
[2021-09-26] MEDS: cefTRIAXone 1,000 MG in 0.9 % Sodium Chloride 10 ML IVP SCH (08:45)
[2021-09-26 10:29] LABS: Hemoglobin 7.6 g/dL (12.9-16.9)
[2021-09-26 10:31] LABS: Hematocrit 22.2 % (37.5-50.1)
[2021-09-26 11:26] LABS: Alanine Aminotransferase 2130 Units/L (7-52); Albumin/Globulin Ratio 1.4 (1.1-2.2); Alkaline Phosphatase 46 Units/L (34-104); Aspartate Amino Transferase 2598 Units/L (13-39); BUN/Creatinine Ratio 44 (6-26); Bilirubin,Total 0.6 mg/dL (0.3-1.0); Blood Urea Nitrogen 31 mg/dL (8-23); Calcium 6.6 mg/dL (8.6-10.3); Carbon Dioxide 24 mEq/L (23-29); Chloride 117 mEq/L (98-107); Globulin 1.4 g/dL (2.4-3.5); Glucose 119 mg/dL (70-105); Magnesium 1.9 mg/dL (1.6-2.6); Osmolality,Calculated 306 (280-300); Phosphorous 1.7 mg/dL (2.7-4.5); Sodium 144 mEq/L (136-145); Total Protein 3.4 g/dL (6.4-8.9); Triglycerides 42 mg/dL (< 150); eGFR For African Americans > 60 (> 60); eGFR For Non-African Americans > 60 (> 60)
[2021-09-26] MEDS ORDERED: Albumin 25% 25gram/100mL 25 GM/100 ML IV.SOLN IVPB ONE (11:27)
[2021-09-26] MEDS ORDERED: Furosemide 40 MG/4 ML VIAL IVP ONE (11:27)
[2021-09-26] MEDS ORDERED: D10% in Water 500 ML IVC PRN (11:51)
[2021-09-26 11:59] LABS: Bilirubin,Direct 0.2 mg/dL (0.0-0.2); Bilirubin,Indirect 0.4 mg/dL (0.0-1.0)
[2021-09-26] MEDS ORDERED: Norepinephrine 4 MG/254 ML IV.SOLN IVC ONE (12:27)
[2021-09-26] MEDS: Norepinephrine 4 MG/254 ML IV.SOLN IVC SCH ×2 (12:58→23:22)
[2021-09-26 16:00] LABS: Hematocrit 17.9 % (37.5-50.1); Hemoglobin 6.2 g/dL (12.9-16.9)
[2021-09-26 16:02] LABS: Hepatitis B Surface Antigen Nonreactive (Nonreactive)
[2021-09-26 16:30] LABS: Hepatitis B Core IgM Nonreactive (Nonreactive)
[2021-09-26 16:31] LABS: Hepatitis C Virus Antibody Nonreactive (Nonreactive)
[2021-09-26 16:32] LABS: Hepatitis A Antibody IgM Nonreactive (Nonreactive)
[2021-09-26] MEDS ORDERED: Clinimix E 5%-15% SOLUTION 2,000 ML IVC SCH (17:00)
[2021-09-26] MEDS: ACETYLCYSTEINE IVC SCH (18:29)
[2021-09-26] MEDS: D5 IVC SCH (18:29)
[2021-09-26] MEDS: WATER IVC SCH (18:29)
[2021-09-27] MEDS: Morphine Sulfate 2 MG/ML SYRINGE IVP PRN (00:05)
[2021-09-27 04:10] LABS: Hematocrit 25.6 % (37.5-50.1); Mean Corpuscular Hemoglobin 28.4 pg (28.0-33.3); Mean Corpuscular Volume 83.7 fL (83.0-100.0); Red Blood Count 3.06 M/mcL (4.19-5.50); Red Cell Distribution Width 16.6 % (11.5-14.5); White Blood Count 14.5 K/mcL (4.3-11.1)
[2021-09-27 04:12] LABS: Hemoglobin 8.7 g/dL (12.9-16.9); Platelet Count 91 K/mcL (140-400)
[2021-09-27 04:17] LABS: INR 1.9; Prothrombin Time 20.7 Seconds (9.4-12.1)
[2021-09-27 04:43] LABS: Alanine Aminotransferase 1373 Units/L (7-52); Albumin 2.1 g/dL (3.5-5.7); Albumin/Globulin Ratio 1.5 (1.1-2.2); Alkaline Phosphatase 47 Units/L (34-104); Aspartate Amino Transferase 1237 Units/L (13-39); BUN/Creatinine Ratio 44 (6-26); Bilirubin,Total 0.8 mg/dL (0.3-1.0); Blood Urea Nitrogen 28 mg/dL (8-23); Calcium 6.5 mg/dL (8.6-10.3); Carbon Dioxide 25 mEq/L (23-29); Chloride 116 mEq/L (98-107); Globulin 1.4 g/dL (2.4-3.5); Glucose 137 mg/dL (70-105); Osmolality,Calculated 308 (280-300); Phosphorous 2.5 mg/dL (2.7-4.5); Sodium 145 mEq/L (136-145); Total Protein 3.5 g/dL (6.4-8.9); eGFR For African Americans > 60 (> 60); eGFR For Non-African Americans > 60 (> 60)
[2021-09-27] MEDS: Pantoprazole 40 MG in 0.9 % Sodium Chloride Mini Bag 100 ML IVC SCH ×3 (05:08→10:21)
[2021-09-27] MEDS: Octreotide 400 MCG in 0.9 % Sodium Chloride 100 ML IVC SCH ×3 (05:08→20:52)
[2021-09-27] MEDS: Insulin LISPRO 300 UNITS/3 ML VIAL SUBQ SCH ×6 (05:09→23:29)
[2021-09-27] MEDS: cefTRIAXone 1,000 MG in 0.9 % Sodium Chloride 10 ML IVP SCH (08:19)
[2021-09-27] MEDS: Dexmedetomidine HCl 400 MCG/100 ML MLS IVC SCH ×2 (08:20→21:02)
[2021-09-27] MEDS: Norepinephrine 4 MG/254 ML IV.SOLN IVC SCH (13:43)
[2021-09-27] MEDS ORDERED: Clinimix E 5%-15% SOLUTION 2,000 ML with MVI, adult with vitamin K 10 ML IVC SCH (17:00)
[2021-09-27] MEDS: D5 IVC SCH (17:02)
[2021-09-27] MEDS: ACETYLCYSTEINE IVC SCH (17:02)
[2021-09-27] MEDS: WATER IVC SCH (17:02)
[2021-09-27] MEDS: Pantoprazole 40 MG VIAL IVP SCH (17:03)
[2021-09-28] MEDS: Morphine Sulfate 2 MG/ML SYRINGE IVP PRN (01:29)
[2021-09-28] MEDS ORDERED: Morphine Sulfate 2 MG/ML SYRINGE IVP ONE (03:00)
[2021-09-28] MEDS ORDERED: *HR* LORazepam 2 MG/ML VIAL IVP ONE (04:16)
[2021-09-28] MEDS: Insulin LISPRO 300 UNITS/3 ML VIAL SUBQ SCH ×5 (04:55→21:30)
[2021-09-28] MEDS: Dexmedetomidine HCl 400 MCG/100 ML MLS IVC SCH ×3 (05:31→20:26)
[2021-09-28] MEDS: Pantoprazole 40 MG VIAL IVP SCH ×2 (05:42→18:30)
[2021-09-28 06:11] LABS: Hematocrit 21.1 % (37.5-50.1); Immature Platelets 7.8 % (1.1-6.1); Mean Corpuscular HGB Conc 33.2 g/dL (31.6-35.5); Mean Corpuscular Hemoglobin 28.2 pg (28.0-33.3); Mean Corpuscular Volume 85.1 fL (83.0-100.0); Mean Platelet Volume 11.8 fL (9.4-12.4); Red Blood Count 2.48 M/mcL (4.19-5.50); Red Cell Distribution Width 17.1 % (11.5-14.5)
[2021-09-28 06:17] LABS: INR 1.2; Prothrombin Time 13.7 Seconds (9.4-12.1)
[2021-09-28 06:47] LABS: Alanine Aminotransferase 941 Units/L (7-52); Albumin 2.3 g/dL (3.5-5.7); Albumin/Globulin Ratio 1.6 (1.1-2.2); Alkaline Phosphatase 52 Units/L (34-104); Aspartate Amino Transferase 745 Units/L (13-39); BUN/Creatinine Ratio 49 (6-26); Bilirubin,Total 0.7 mg/dL (0.3-1.0); Blood Urea Nitrogen 25 mg/dL (8-23); Calcium 6.9 mg/dL (8.6-10.3); Carbon Dioxide 26 mEq/L (23-29); Chloride 118 mEq/L (98-107); Globulin 1.4 g/dL (2.4-3.5); Glucose 84 mg/dL (70-105); Osmolality,Calculated 310 (280-300); Phosphorous 1.8 mg/dL (2.7-4.5); Potassium 3.9 mEq/L (3.5-5.1); Sodium 148 mEq/L (136-145); Total Protein 3.7 g/dL (6.4-8.9); eGFR For African Americans > 60 (> 60); eGFR For Non-African Americans > 60 (> 60)
[2021-09-28] MEDS: Octreotide 400 MCG in 0.9 % Sodium Chloride 100 ML IVC SCH ×2 (08:38→13:44)
[2021-09-28] MEDS: cefTRIAXone 1,000 MG in 0.9 % Sodium Chloride 10 ML IVP SCH (08:48)
[2021-09-28] MEDS: Potassium Chloride 20 MEQ in D5% in Water 1,000 ML IVC SCH (08:49)
[2021-09-28 09:17] LABS: Bilirubin,Direct 0.2 mg/dL (0.0-0.2); Bilirubin,Indirect 0.5 mg/dL (0.0-1.0)
[2021-09-28] MEDS: D5% in Water 1,000 ML IVC PRN (13:27)
[2021-09-28 14:07] LABS: Hematocrit 18.7 % (37.5-50.1); Hemoglobin 6.1 g/dL (12.9-16.9); Immature Platelets 9.2 % (1.1-6.1); Mean Corpuscular HGB Conc 32.6 g/dL (31.6-35.5); Mean Corpuscular Hemoglobin 28.6 pg (28.0-33.3); Mean Corpuscular Volume 87.8 fL (83.0-100.0); Mean Platelet Volume 11.2 fL (9.4-12.4); Red Blood Count 2.13 M/mcL (4.19-5.50); Red Cell Distribution Width 17.7 % (11.5-14.5); White Blood Count 16.8 K/mcL (4.3-11.1)
[2021-09-28] MEDS ORDERED: 0.9 % Sodium Chloride 1,000 ML ONE (15:34)
[2021-09-28] MEDS ORDERED: Azithromycin 500 MG in 0.9 % Sodium Chloride 250 ML IVPB ONE (16:21)
[2021-09-28] MEDS ORDERED: *HR* FentaNYL (PF) 100 MCG/2 ML VIAL ONE ×3 (16:33→18:43)
[2021-09-28] MEDS ORDERED: *HR* Midazolam HCl 5 MG/5 ML VIAL IVP ONE ×4 (16:34→18:45)
[2021-09-28] MEDS ORDERED: 0.9 % Sodium Chloride 250 ML ONE (16:38)
[2021-09-28] MEDS ORDERED: Clinimix E 5%-15% SOLUTION 2,000 ML IVC SCH (17:00)
[2021-09-28] MEDS ORDERED: *HR* FentaNYL (PF) 100 MCG/2 ML VIAL IVP ONE ×2 (18:32→18:49)
[2021-09-28] MEDS ORDERED: *HR* Midazolam HCl 2 MG/2 ML VIAL IVP ONE ×2 (18:33→18:50)
[2021-09-28 19:58] LABS: Hematocrit 27.7 % (37.5-50.1)
[2021-09-28] MEDS: Lactulose Oral Soln 20 GM/30 ML UDC GTUBE SCH (20:26)
[2021-09-28] MEDS ORDERED: *HR* Atropine Sulfate 1 MG/10 ML SYRINGE ONE (21:53)
[2021-09-28 22:35] LABS: Hemoglobin 8.6 g/dL (12.9-16.9)
[2021-09-29 03:44] LABS: Hematocrit 25.2 % (37.5-50.1); Hemoglobin 8.6 g/dL (12.9-16.9); Mean Corpuscular HGB Conc 34.1 g/dL (31.6-35.5); Mean Corpuscular Volume 87.8 fL (83.0-100.0); Mean Platelet Volume 11.9 fL (9.4-12.4); Platelet Count 103 K/mcL (140-400); Red Blood Count 2.87 M/mcL (4.19-5.50); Red Cell Distribution Width 16.6 % (11.5-14.5); White Blood Count 19.2 K/mcL (4.3-11.1)
[2021-09-29 04:03] LABS: INR 1.1; Prothrombin Time 12.2 Seconds (9.4-12.1)
[2021-09-29 04:18] LABS: Alanine Aminotransferase 693 Units/L (7-52); Albumin 2.1 g/dL (3.5-5.7); Albumin/Globulin Ratio 1.2 (1.1-2.2); Alkaline Phosphatase 52 Units/L (34-104); Aspartate Amino Transferase 473 Units/L (13-39); BUN/Creatinine Ratio 50 (6-26); Bilirubin,Total 0.7 mg/dL (0.3-1.0); Blood Urea Nitrogen 23 mg/dL (8-23); Calcium 6.4 mg/dL (8.6-10.3); Carbon Dioxide 26 mEq/L (23-29); Chloride 116 mEq/L (98-107); Globulin 1.8 g/dL (2.4-3.5); Glucose 92 mg/dL (70-105); Magnesium 2.1 mg/dL (1.6-2.6); Osmolality,Calculated 301 (280-300); Phosphorous 2.6 mg/dL (2.7-4.5); Potassium 4.3 mEq/L (3.5-5.1); Sodium 144 mEq/L (136-145); Total Protein 3.9 g/dL (6.4-8.9); eGFR For African Americans > 60 (> 60); eGFR For Non-African Americans > 60 (> 60)
[2021-09-29] MEDS ORDERED: Furosemide 40 MG/4 ML VIAL IVP ONE ×2 (04:27→13:26)
[2021-09-29] MEDS: Pantoprazole 40 MG VIAL IVP SCH ×2 (05:29→18:08)
[2021-09-29] MEDS: Calcium Gluconate 1gm/50mL 1 GM/50 ML BAG IVPB SCH ×2 (05:37→06:35)
[2021-09-29] MEDS: Octreotide 400 MCG in 0.9 % Sodium Chloride 100 ML IVC SCH ×2 (08:10→08:12)
[2021-09-29] MEDS: Potassium Chloride 20 MEQ in D5% in Water 1,000 ML IVC SCH (08:11)
[2021-09-29] MEDS: Insulin LISPRO 300 UNITS/3 ML VIAL SUBQ SCH ×6 (08:11→23:34)
[2021-09-29] MEDS: Norepinephrine 4 MG/254 ML IV.SOLN IVC SCH ×2 (08:12→11:01)
[2021-09-29] MEDS: Lactulose Oral Soln 20 GM/30 ML UDC GTUBE SCH ×3 (08:30→20:53)
[2021-09-29] MEDS: cefTRIAXone 1,000 MG in 0.9 % Sodium Chloride 10 ML IVP SCH (08:30)
[2021-09-29 09:08] LABS: Hematocrit 27.1 % (37.5-50.1); Hemoglobin 9.2 g/dL (12.9-16.9)
[2021-09-29] MEDS: Ampicillin/Sulbactam 3,000 MG in 0.9 % Sodium Chloride Mini Bag 100 ML IVPB SCH ×3 (12:09→23:21)
[2021-09-29] MEDS: *HR* FentaNYL (PF) 100 MCG/2 ML VIAL IVP SCH ×3 (13:42→21:12)
[2021-09-29 15:12] LABS: Bacteria,Urine Few per hpf (None-Few); Bilirubin,Urine Negative (Negative); Blood,Urine Small (Negative); Clarity,Urine Clear (Clear); Color,Urine Colorless (Yellow); Glucose,Urine (UA) Normal (Normal); Hyaline Casts,Urine Few per lpf (None Seen); Ketones,Urine Negative (Negative); Leukocyte Esterase,Urine Negative (Negative); Mucus,Urine Few per lpf (None-Few); Nitrite,Urine Negative (Negative); Protein,Urine Negative (Neg-Trace); Specific Gravity,Urine 1.009 (1.010-1.025); Urobilinogen,Urine Normal (Normal); WBC,Urine 0-3 per hpf (0-3)
[2021-09-29 15:19] LABS: Hematocrit 30.2 % (37.5-50.1); Hemoglobin 9.7 g/dL (12.9-16.9)
[2021-09-29] MEDS ORDERED: Clinimix E 5%-15% SOLUTION 2,000 ML IVC SCH (17:00)
[2021-09-29 20:01] LABS: Hematocrit 29.1 % (37.5-50.1); Hemoglobin 9.6 g/dL (12.9-16.9)
[2021-09-29] MEDS: Morphine Sulfate 2 MG/ML SYRINGE IVP PRN (20:35)
[2021-09-30] MEDS: *HR* FentaNYL (PF) 100 MCG/2 ML VIAL IVP SCH ×7 (01:30→23:00)
[2021-09-30 03:29] LABS: Hematocrit 25.9 % (37.5-50.1); Hemoglobin 8.4 g/dL (12.9-16.9); Mean Corpuscular HGB Conc 32.4 g/dL (31.6-35.5); Mean Corpuscular Hemoglobin 29.4 pg (28.0-33.3); Mean Corpuscular Volume 90.6 fL (83.0-100.0); Mean Platelet Volume 11.9 fL (9.4-12.4); Platelet Count 113 K/mcL (140-400); Red Blood Count 2.86 M/mcL (4.19-5.50); Red Cell Distribution Width 18.6 % (11.5-14.5); White Blood Count 21.1 K/mcL (4.3-11.1)
[2021-09-30 03:37] LABS: INR 1.2; Prothrombin Time 13.9 Seconds (9.4-12.1)
[2021-09-30 03:51] LABS: VBG Ionized Calcium 0.96 mmol/L (1.15-1.35)
[2021-09-30 03:52] LABS: Alanine Aminotransferase 471 Units/L (7-52); Albumin 2.3 g/dL (3.5-5.7); Albumin/Globulin Ratio 1.2 (1.1-2.2); Alkaline Phosphatase 63 Units/L (34-104); Aspartate Amino Transferase 420 Units/L (13-39); BUN/Creatinine Ratio 33 (6-26); Bilirubin,Direct 0.2 mg/dL (0.0-0.2); Bilirubin,Indirect 0.9 mg/dL (0.0-1.0); Bilirubin,Total 1.1 mg/dL (0.3-1.0); Blood Urea Nitrogen 19 mg/dL (8-23); Calcium 7.1 mg/dL (8.6-10.3); Carbon Dioxide 28 mEq/L (23-29); Chloride 114 mEq/L (98-107); Glucose 101 mg/dL (70-105); Osmolality,Calculated 306 (280-300); Phosphorous 2.9 mg/dL (2.7-4.5); Potassium 3.5 mEq/L (3.5-5.1); Sodium 147 mEq/L (136-145); Total Protein 4.3 g/dL (6.4-8.9); eGFR For African Americans > 60 (> 60); eGFR For Non-African Americans > 60 (> 60)
[2021-09-30] MEDS: Insulin LISPRO 300 UNITS/3 ML VIAL SUBQ SCH ×5 (04:48→19:46)
[2021-09-30] MEDS: Pantoprazole 40 MG VIAL IVP SCH ×2 (05:33→18:35)
[2021-09-30] MEDS: Ampicillin/Sulbactam 3,000 MG in 0.9 % Sodium Chloride Mini Bag 100 ML IVPB SCH ×4 (05:33→22:56)
[2021-09-30] MEDS: Lactulose Oral Soln 20 GM/30 ML UDC GTUBE SCH ×3 (08:39→19:54)
[2021-09-30 12:05] LABS: Hematocrit 24.6 % (37.5-50.1); Hemoglobin 7.9 g/dL (12.9-16.9)
[2021-09-30 19:08] LABS: Hematocrit 24.6 % (37.5-50.1); Hemoglobin 8.1 g/dL (12.9-16.9)
[2021-09-30] MEDS: *HR* Dextrose 50 % in Water (Syg) 50 ML SYRINGE IVP PRN ×2 (19:45→23:01)
[2021-09-30] MEDS: Norepinephrine 4 MG/254 ML IV.SOLN IVC SCH (22:48)
[2021-10-01] MEDS: Insulin LISPRO 300 UNITS/3 ML VIAL SUBQ SCH ×5 (00:05→15:55)
[2021-10-01 00:22] LABS: Hematocrit 25.7 % (37.5-50.1); Hemoglobin 8.2 g/dL (12.9-16.9)
[2021-10-01] MEDS: Morphine Sulfate 2 MG/ML SYRINGE IVP PRN (00:50)
[2021-10-01 04:03] LABS: Alanine Aminotransferase 376 Units/L (7-52); Albumin 2.3 g/dL (3.5-5.7); Alkaline Phosphatase 67 Units/L (34-104); Aspartate Amino Transferase 425 Units/L (13-39); BUN/Creatinine Ratio 21 (6-26); Bilirubin,Total 1.2 mg/dL (0.3-1.0); Blood Urea Nitrogen 10 mg/dL (8-23); Calcium 7.3 mg/dL (8.6-10.3); Carbon Dioxide 29 mEq/L (23-29); Chloride 115 mEq/L (98-107); Globulin 2.4 g/dL (2.4-3.5); Glucose 96 mg/dL (70-105); Magnesium 2.1 mg/dL (1.6-2.6); Osmolality,Calculated 311 (280-300); Phosphorous 2.6 mg/dL (2.7-4.5); Potassium 3.3 mEq/L (3.5-5.1); Sodium 151 mEq/L (136-145); Total Protein 4.7 g/dL (6.4-8.9); eGFR For African Americans > 60 (> 60); eGFR For Non-African Americans > 60 (> 60)
[2021-10-01] MEDS: Dexmedetomidine HCl 400 MCG/100 ML MLS IVC SCH (05:07)
[2021-10-01] MEDS: *HR* FentaNYL (PF) 100 MCG/2 ML VIAL IVP SCH (05:14)
[2021-10-01] MEDS: Pantoprazole 40 MG VIAL IVP SCH (05:15)
[2021-10-01] MEDS: Ampicillin/Sulbactam 3,000 MG in 0.9 % Sodium Chloride Mini Bag 100 ML IVPB SCH (05:16)
[2021-10-01] MEDS ORDERED: Potassium Chloride Elixir 20 MEQ/15 ML UDC GTUBE ONE (06:25)
[2021-10-01] MEDS ORDERED: Potassium Phosphate 44 MEQ in 0.9 % Sodium Chloride 250 ML IVPB ONE (06:25)
[2021-10-01 07:10] LABS: Basophils % 0.2 %; Eosinophils % 0.1 %; Hematocrit 26.5 % (37.5-50.1); Hemoglobin 8.3 g/dL (12.9-16.9); Immature Granulocytes % 3.4 % (0-4); Lymphocytes % 5.9 %; Mean Corpuscular HGB Conc 31.3 g/dL (31.6-35.5); Mean Corpuscular Hemoglobin 28.5 pg (28.0-33.3); Mean Corpuscular Volume 91.1 fL (83.0-100.0); Mean Platelet Volume 11.3 fL (9.4-12.4); Monocytes # 2.2 K/mcL (0.0-1.3); Monocytes % 12.7 %; Neutrophils # 13.2 K/mcL (1.6-8.9); Nucleated Red Blood Cells 1.2 /100 WBC (0); Platelet Count 124 K/mcL (140-400); Red Blood Count 2.91 M/mcL (4.19-5.50); Red Cell Distribution Width 19.8 % (11.5-14.5); Segmented Neutrophils % 77.7 %
[2021-10-01] MEDS: Lactulose Oral Soln 20 GM/30 ML UDC GTUBE SCH (08:53)
[2021-10-01] MEDS ORDERED: Dextrose 4 GM Chewable Tablets PO PRN ×2 (11:40)
[2021-10-01] MEDS ORDERED: Naloxone 0.4 MG/ML INJ IVP PRN (11:40)
[2021-10-01] MEDS ORDERED: D5% in Water 1,000 ML IVC PRN (11:40)
[2021-10-01] MEDS ORDERED: *HR* Dextrose 50 % in Water (Syg) 50 ML SYRINGE IVP PRN (11:40)
[2021-10-01] MEDS ORDERED: Ondansetron ODT 4 MG TAB.RAPDIS SL PRN (11:40)
[2021-10-01 11:43] VITALS: TEMP 96.9
[2021-10-01] MEDS ORDERED: D5% in Water 1,000 ML IVC SCH (11:45)
[2021-10-01] MEDS ORDERED: Ampicillin/Sulbactam 3,000 MG in 0.9 % Sodium Chloride Mini Bag 100 ML IVPB SCH (12:00)
[2021-10-01] MEDS ORDERED: Morphine Sulfate Oral CONC 10 MG/0.5 ML ORAL.SYG SL PRN (12:18)
[2021-10-01] MEDS ORDERED: *HR* LORazepam Oral Conc 2 MG/ML PO PRN (12:19)
[2021-10-01] MEDS ORDERED: Morphine Sulfate Oral CONC 10 MG/0.5 ML ORAL.SYG SL SCH (12:30)
[2021-10-01 12:35] VITALS: O2SAT 98
[2021-10-01 12:41] VITALS: BP 147/68; PULSE 91
[2021-10-01 14:52] LABS: Adenovirus Not Detected (Not Detect); Bordetella Pertussis Not Detected (Not Detect); Chlamydophila pneumoniae Not Detected (Not Detect); Coronavirus 229E Not Detected (Not Detect); Coronavirus HKU1 Not Detected (Not Detect); Coronavirus NL63 Not Detected (Not Detect); Coronavirus OC43 Not Detected (Not Detect); Human Metapneumovirus DETECTED (Not Detect); Human Rhinovirus/Enterovirus Not Detected (Not Detect); Influenza A Subtype 2009 H1 Not Detected (Not Detect); Influenza B Not Detected (Not Detect); Mycoplasma pneumoniae Not Detected (Not Detect); Parainfluenza Virus 1 Not Detected (Not Detect); Parainfluenza Virus 2 Not Detected (Not Detect); Parainfluenza Virus 3 Not Detected (Not Detect); Parainfluenza Virus 4 Not Detected (Not Detect); Respiratory Syncytial Virus Not Detected (Not Detect); SARS-CoV-2 Not Detected (Not Detect)
[2021-10-01] MEDS ORDERED: Lactulose Oral Soln 20 GM/30 ML UDC PO SCH (15:00)
[2021-10-01] MEDS ORDERED: Pantoprazole 40 MG VIAL IVP SCH (18:00)
== END 2021-10-01 17:45 | disposition hospice, inpatient (51) | DRG 871 ==
LOC: 3NENU 15:59 → EMEROOARM 15:59 → SUATTDRO 18:19 → 3NENU 18:55 → ICNU 09-25 02:48 → 2ANU 10-01 12:43
PROVIDERS: ADMIT Internal Medicine; ATTEND Internal Medicine